=== PATIENT | female | born 1935 | race Caucasian/White ===

== ENCOUNTER 2018-01-04 19:59 | Inpatient (IN) | payer MEDICARE ==
[~2018-01-04] VITALS: Ht 165.1 cm; Wt 114.8 kg
--- NOTE | 2018-01-04 20:22 | NUR ---
DR GATES INTO EVAL PATIENT
[2018-01-04] MEDS ORDERED: ONDANSETRON 4 MG/2 ML VIAL IV ONE (20:30)
[2018-01-04] MEDS ORDERED: HYDROMORPHONE 1 MG/1 ML DISP.SYRIN IV ONE ×2 (20:30→22:30)
[2018-01-04] MEDS ORDERED: IV NORMAL SALINE 500 ML BAG IV ONE (20:30)
[2018-01-04] MEDS ORDERED: FAMOTIDINE. 20 MG/2 ML VIAL IV ONE ×2 (20:30→21:38)
--- NOTE | 2018-01-04 20:40 | NUR ---
PT IN ROUTE TO CT IN [facility] WITH TRANSPORTER
[2018-01-04 21:12] LABS: BASOPHILS % (AUTO) 0.8 % (0.0-2.0); EOSINOPHILS # (AUTO) 0.1 K/uL (0.0-0.7); EOSINOPHILS % (AUTO) 1.8 % (0.0-7.0); HEMATOCRIT 40.6 % (31.2-41.9); HEMOGLOBIN 13.4 g/dL (10.9-14.3); LYMPHOCYTES # (AUTO) 0.9 K/uL (20.0-40.0); LYMPHOCYTES % (AUTO) 15.2 % (20.5-51.5); MEAN CORPUSCULAR HEMOGLOBIN 27.2 uug (24.7-32.8); MEAN CORPUSCULAR HGB CONC 33 g/dL (32.3-35.6); MEAN CORPUSCULAR VOLUME 82.6 fL (75.5-95.3); MONOCYTES # (AUTO) 0.5 K/uL (2.0-10.0); MONOCYTES % (AUTO) 8.2 % (0.0-11.0); NEUTROPHILS # (AUTO) 4.3 K/uL (1.8-8.9); PLATELET COUNT (AUTO) 181 K/uL (179-408); RED BLOOD CELL COUNT(AUTO) 4.91 MIL/uL (3.63-4.92); WHITE BLOOD COUNT (AUTO) 5.9 K/uL (3.8-11.8)
--- NOTE | 2018-01-04 21:22 | NUR ---
PT RETURNS FROM CT IN [facility] WITH TRANSPORTER
[2018-01-04] MEDS ORDERED: ONDANSETRON 4 MG/2 ML VIAL ONE (21:38)
[2018-01-04] MEDS ORDERED: HYDROMORPHONE 2 MG/1 ML DISP.SYRIN ONE ×2 (21:38→22:50)
[2018-01-04 21:45] LABS: ALANINE AMINOTRANSFERASE 13 U/L (14-59); ALKALINE PHOSPHATASE 85 U/L (50-136); ASPARTATE AMINOTRANSFERASE 25 U/L (15-37); BILIRUBIN,DIRECT 0.1 mg/dL (0.0-0.2); BILIRUBIN,TOTAL 0.4 mg/dL (0.2-1.0); CARBON DIOXIDE 26 mmol/L (21-32); CHLORIDE 104 mmol/L (98-107); CREATININE 0.8 mg/dL (0.6-1.3); GLUCOSE 120 mg/dL (74-106); POTASSIUM 4.4 mmol/L (3.5-5.1); TOTAL PROTEIN, SERUM 7.8 g/dL (6.4-8.2); UREA NITROGEN, BLOOD 21 mg/dL (7-18)
[2018-01-04 21:52] LABS: LIPASE 99 U/L (73-393)
--- NOTE | 2018-01-04 21:55 | NUR ---
VERBAL MD ORDER: BENTYL 20MG PO GIVEN
[2018-01-04] MEDS ORDERED: DICYCLOMINE HCL 20 MG/2 ML AMPUL IM SCH (22:00)
[2018-01-04] MEDS ORDERED: DICYCLOMINE HCL 10 MG/5 ML UDC LIQ ONE (22:03)
[2018-01-04] MEDS ORDERED: LEVO100T PO (23:18)
[2018-01-04] MEDS ORDERED: NITR100C11 PO (23:18)
[2018-01-04] MEDS ORDERED: PANT40TA2 PO (23:18)
--- NOTE | 2018-01-04 23:42 | NUR ---
CALL PLACED TO [facility] FOR TELE ADMISSION
[2018-01-05] MEDS ORDERED: Z GUARD REMEDY PASTE 57 GM TUBE TOP PRN (00:30)
[2018-01-05] MEDS ORDERED: HYDROCODONE/APAP 5-325MG TABLET PO PRN (00:30)
[2018-01-05] MEDS ORDERED: MAGNESIUM HYDROXIDE 30 ML LIQUID UDC PO PRN (00:30)
[2018-01-05] MEDS ORDERED: ONDANSETRON 4 MG/2 ML VIAL IV PRN (00:30)
[2018-01-05] MEDS ORDERED: MORPHINE SULFATE 2 MG/1 ML DISP.SYRIN IV PRN (00:30)
[2018-01-05] MEDS ORDERED: ACETAMINOPHEN 325 MG TABLET PO PRN (00:30)
--- NOTE | 2018-01-05 00:32 | NUR ---
REPORT GIVEN TO TELE NURSEHIMANSHU
--- NOTE | 2018-01-05 01:10 | NUR ---
IN FROM ER VIA [facility], ADMITTED 82 YO FEMALE WITH DX OF EPIGASTRIC PAIN. AAOX4, NO COMPLAINTS OF DISCOMFORT AT THIS TIME. TELE MONITOR APPLIED SHOWS SINUS RHYTHM WITH HR OF 93. IV SITE ON L WRIST, PATENT AND INTACT. ROUTINE ADMISSION DONE. PLAN OF CARE INITIATED. BED PLACED ON LOW, LOCKED POSITION WITH TWO SIDERAILS UP, CALL EUBANKS WITHIN REACH.
--- NOTE | 2018-01-05 01:10 | NUR ---
Pt. admitted to [facility], under care of KAILEE MILLIGAN [place]ongs List completed
[2018-01-05 01:13] VITALS: BP 127/64
[2018-01-05] MEDS: IV D5 1/2 NS 1000 ML 1,000 ML IV PRN ×2 (02:15→17:51)
[2018-01-05 03:40] VITALS: BP 117/52
[2018-01-05 06:43] LABS: BASOPHILS % (AUTO) 0.5 % (0.0-2.0); EOSINOPHILS % (AUTO) 1.1 % (0.0-7.0); HEMATOCRIT 39.4 % (31.2-41.9); LYMPHOCYTES # (AUTO) 0.3 K/uL (20.0-40.0); LYMPHOCYTES % (AUTO) 7.6 % (20.5-51.5); MEAN CORPUSCULAR HEMOGLOBIN 27.3 uug (24.7-32.8); MEAN CORPUSCULAR HGB CONC 33 g/dL (32.3-35.6); MEAN CORPUSCULAR VOLUME 82.6 fL (75.5-95.3); MONOCYTES # (AUTO) 0.3 K/uL (2.0-10.0); MONOCYTES % (AUTO) 6.3 % (0.0-11.0); NEUTROPHILS # (AUTO) 3.5 K/uL (1.8-8.9); NEUTROPHILS % (AUTO) 84.5 % (38.5-71.5); PLATELET COUNT (AUTO) 167 K/uL (179-408); RED BLOOD CELL COUNT(AUTO) 4.77 MIL/uL (3.63-4.92); WHITE BLOOD COUNT (AUTO) 4.2 K/uL (3.8-11.8)
--- NOTE | 2018-01-05 06:46 | NUR ---
PT ASLEEP ON BED, HAD EPISODES OF N/V, OFFERED ZOFRAN PRN BUT PT REFUSED AND WILL INFORM NURSE WHEN NEEDED. NO COMPLAINTS OF RESPIRATORY DISTRESS OR ANY PAIN THROUGHOUT THE SHIFT. ON TELE SINUS RHYTHM WITH OCCASIONAL PVCs. IV SITE ON L WRIST, PATENT AND INTACT. ON O2 2L VIA NC, TOLERATED WELL. SAFE ENVIRONMENT MAINTAINED AT ALL TIMES, CALL EUBANKS WITHIN REACH.
[2018-01-05 07:07] LABS: CARBON DIOXIDE 29 mmol/L (21-32); CHLORIDE 106 mmol/L (98-107); CHOLESTEROL 158 mg/dL (<200); CREATININE 0.8 mg/dL (0.6-1.3); GLUCOSE 125 mg/dL (74-106); HDL CHOLESTEROL 41 mg/dL (40-60); MAGNESIUM 2.1 mg/dL (1.8-2.4); PHOSPHOROUS 3.3 mg/dL (2.5-4.9); POTASSIUM 3.9 mmol/L (3.5-5.1); TRIGLYCERIDES 74 MG/DL (30-150); UREA NITROGEN, BLOOD 18 mg/dL (7-18)
[2018-01-05 07:40] LABS: THYROID STIMULATING HORMONE 3.813 mIU/mL (0.358-3.740)
[2018-01-05] MEDS ORDERED: PANTOPRAZOLE SODIUM 40 MG VIAL IV SCH (09:00)
[2018-01-05] MEDS ORDERED: PANTOPRAZOLE SODIUM 40 MG TABLET.DR PO SCH (09:00)
[2018-01-05] MEDS: NITROFURANTOIN/NITROFURAN MAC 100 MG CAPSULE PO SCH ×2 (09:40→17:50)
[2018-01-05] MEDS: LEVOTHYROXINE SODIUM 100 MCG TABLET PO SCH (09:40)
--- NOTE | 2018-01-05 11:00 | NUR ---
Pt seen by Dr. XIANG HANSON with order of MRCP with no contrast. Pt kept on NPO.
[2018-01-05 11:18] VITALS: BP 103/37
--- NOTE | 2018-01-05 12:34 | NUR ---
Pt alert and oriented x3, continues to complain trace of abdominal pain 06/05. No PRN medication required. Pt able to pass flatus. Still NPO. Continue IV fluids for hydration.
[2018-01-05] MEDS ORDERED: MORPHINE SULFATE 4 MG/1 ML DISP.SYRIN IV PRN (15:00)
[2018-01-05 15:01] VITALS: BP 103/48
--- NOTE | 2018-01-05 18:48 | NUR ---
Pt completed ultrasound, awaiting for results. Remains NPO for now until further orders. Continue IV fluids. No nausea and vomiting throughout shift.
--- NOTE | 2018-01-05 19:10 | NUR ---
RECEIVED PT AWAKE ON BED, AAOX4, NO COMPLAINTS OF N/V OR PAIN AT THIS TIME. IV SITE ON R HAND, PATENT AND INTACT. BED PLACED ON LOW, LOCKED POSITION WITH TWO SIDE RAILS UP, CALL EUBANKS WITHIN REACH.
[2018-01-05 19:33] VITALS: BP 116/46
--- NOTE | 2018-01-05 21:30 | NUR ---
NOTIFIED VIRI DUGAN ON ABD KENRICK RESULTS, ORDERS RECEIVED TO START ON REGULAR DIET AND LAB WORK OF DIRECT AND TOTAL BILIRUBIN. ORDERS CARRIED OUT.
[2018-01-06] MEDS: DOCUSATE SODIUM 100 MG CAPSULE PO SCH ×2 (02:08→21:00)
[2018-01-06 03:42] VITALS: BP 133/66
[2018-01-06 06:36] LABS: BASOPHILS % (AUTO) 0.4 % (0.0-2.0); EOSINOPHILS # (AUTO) 0.1 K/uL (0.0-0.7); EOSINOPHILS % (AUTO) 2.1 % (0.0-7.0); HEMATOCRIT 40.6 % (31.2-41.9); HEMOGLOBIN 13.4 g/dL (10.9-14.3); LYMPHOCYTES # (AUTO) 0.7 K/uL (20.0-40.0); LYMPHOCYTES % (AUTO) 19.3 % (20.5-51.5); MEAN CORPUSCULAR HEMOGLOBIN 27.3 uug (24.7-32.8); MEAN CORPUSCULAR HGB CONC 33 g/dL (32.3-35.6); MEAN CORPUSCULAR VOLUME 82.8 fL (75.5-95.3); MONOCYTES # (AUTO) 0.4 K/uL (2.0-10.0); MONOCYTES % (AUTO) 11.2 % (0.0-11.0); NEUTROPHILS # (AUTO) 2.4 K/uL (1.8-8.9); PLATELET COUNT (AUTO) 197 K/uL (179-408); WHITE BLOOD COUNT (AUTO) 3.6 K/uL (3.8-11.8)
[2018-01-06 06:46] LABS: CARBON DIOXIDE 29 mmol/L (21-32); CHLORIDE 104 mmol/L (98-107); CREATININE 0.8 mg/dL (0.6-1.3); GLUCOSE 134 mg/dL (74-106); POTASSIUM 3.4 mmol/L (3.5-5.1); UREA NITROGEN, BLOOD 10 mg/dL (7-18)
[2018-01-06 06:50] LABS: BILIRUBIN,DIRECT 0.1 mg/dL (0.0-0.2); BILIRUBIN,TOTAL 0.5 mg/dL (0.2-1.0)
--- NOTE | 2018-01-06 06:55 | NUR ---
PT RESTING COMFORTABLY ON BED, AAOX4. NO EPISODE OF VOMITING THROUGHOUT THE SHIFT. PT ABLE TO HAVE A BM. IV SITE, PATENT AND INTACT. SAFE ENVIRONMENT MAINTAINED AT ALL TIMES, CALL EUBANKS WITHIN REACH
[2018-01-06] MEDS: PANTOPRAZOLE SODIUM 40 MG VIAL IV SCH (08:46)
[2018-01-06] MEDS: LEVOTHYROXINE SODIUM 100 MCG TABLET PO SCH (08:47)
[2018-01-06] MEDS: NITROFURANTOIN/NITROFURAN MAC 100 MG CAPSULE PO SCH ×2 (08:47→16:56)
[2018-01-06] MEDS: IV D5 1/2 NS 1000 ML 1,000 ML IV PRN (10:25)
[2018-01-06 11:36] VITALS: BP 113/62
[2018-01-06] MEDS ORDERED: POTASSIUM CHLORIDE 20 MEQ TAB.PRT.SR PO ONE (14:15)
[2018-01-06] MEDS ORDERED: POTASSIUM CHLORIDE 20 MEQ POWDER PACKET PO ONE (14:30)
[2018-01-06 15:04] VITALS: BP 115/65
[2018-01-06 19:21] VITALS: BP 148/64
[2018-01-07] MEDS: IV D5 1/2 NS 1000 ML 1,000 ML IV PRN (00:07)
[2018-01-07 03:42] VITALS: BP 122/68
--- NOTE | 2018-01-07 06:49 | NUR ---
PT AWAKE ON BED, AAOX4, DENIES ANY PAIN OR SOB AT THIS TIME. IV SITE ON R HAND, PATENT AND INTACT. NO EPISODE OF N/V/D. KEPT WARM AND COMFORTABLE. SAFE ENVIRONMENT MAINTAINED AT ALL TIMES, CALL EUBANKS WITHIN REACH.
[2018-01-07 07:32] LABS: CARBON DIOXIDE 28 mmol/L (21-32); CHLORIDE 106 mmol/L (98-107); CREATININE 0.7 mg/dL (0.6-1.3); GLUCOSE 113 mg/dL (74-106); POTASSIUM 3.5 mmol/L (3.5-5.1); UREA NITROGEN, BLOOD 6 mg/dL (7-18)
[2018-01-07 07:37] LABS: *BILIRUBIN,URIN NEGATIVE (NEGATIVE); *BLOOD, URINE NEGATIVE (NEGATIVE); *CLARITY,URINE CLEAR (CLEAR); *COLOR,URINE YELLOW (YELLOW); *KETONES,URINE NEGATIVE (NEGATIVE); *PROTEIN,URINE NEGATIVE (NEGATIVE); *UROBILINOGEN,URINE 0.2 E.U./dl (NORMAL); LEUKOCYTE ESTERASE ,URINE NEGATIVE (NEGATIVE); NITRITE, URINE NEGATIVE (NEGATIVE); UGLUCOSE NEGATIVE (NEGATIVE)
[2018-01-07] MEDS: NITROFURANTOIN/NITROFURAN MAC 100 MG CAPSULE PO SCH ×2 (08:05→16:24)
[2018-01-07] MEDS: LEVOTHYROXINE SODIUM 100 MCG TABLET PO SCH (08:05)
[2018-01-07] MEDS: PANTOPRAZOLE SODIUM 40 MG VIAL IV SCH (08:05)
[2018-01-07 08:10] LABS: RBC,URINE 0-3 /HPF (0-3); SQUAMOUS EPITHELIAL CELL,UR FEW /HPF (NONE SEEN); WBC,URINE 0-3 /HPF (0-3)
[2018-01-07 08:11] LABS: BACTERIA,URINE NONE SEEN /HPF (NONE SEEN)
[2018-01-07 11:45] VITALS: BP 149/76
[2018-01-07] MEDS ORDERED: BARIUM SULFATE 340 GM ONE (13:19)
--- NOTE | 2018-01-07 14:15 | NUR ---
PT D/C WITH ALL BELONGINGS, VALUABLES, MEDICATIONS, AND EXIT-CARE PACKET. MIDLINE REMOVED 10CM LONG, INTACT. PT STABLE TO DC, PT LEAVING VIA PRIVATE CAR WITH CHULA PARR. STATES THAT HE HAS AN APPOINTMENT WITH [facility] FOR FOLLOW UP. SIGNED RELEASE OF INFORMATION FORM. Addendum: 01/10/18 at 1422 by PROSPER GARCIA RN INCORRECT PATIENT
[2018-01-07 14:28] VITALS: BP 104/55
[2018-01-07 15:57] VITALS: BP 139/69
[2018-01-07] MEDS ORDERED: MIRALAX 17 GM POWD.PACK PO SCH (16:30)
== END 2018-01-07 17:50 | disposition home or self-care (01) | DRG 392 ==
LOC: ER 20:04 → TELE 01-05 00:20 → MED 01-05 18:47
PROVIDERS: ADMIT Registered Nurse; ATTEND Internal Medicine
DX: K21.0 Gastro-esophageal reflux disease with esophagitis (principal); N39.0 Urinary tract infection, site not specified; Z68.41 Body mass index [BMI] 40.0-44.9, adult; E44.1 Mild protein-calorie malnutrition; E03.9 Hypothyroidism, unspecified; Z90.49 Acquired absence of other specified parts of digestive tract; E66.01 Morbid (severe) obesity due to excess calories; E87.6 Hypokalemia; K21.9 Gastro-esophageal reflux disease without esophagitis; Z87.11 Personal history of peptic ulcer disease; Z90.710 Acquired absence of both cervix and uterus; Z86.19 Personal history of other infectious and parasitic diseases; K22.2 Esophageal obstruction; E66.9 Obesity, unspecified; Z71.3 Dietary counseling and surveillance
CPT/HCPCS: 36415; 70030-TC; 71045; 74220; 76705; 83690; 83735; 84100; 84443; 85025; 86677; 92610; 93005; 93307; A4663; C9113; J1170; J2405; J3490; J7030; Q9967